=== PATIENT | male | born 1990 | race Caucasian/White ===

== ENCOUNTER 2016-08-10 10:49 | Emergency (ER) | payer OTHER ==
[~2016-08-10] VITALS: Ht 180.3 cm; Wt 104.3 kg
--- NOTE | 2016-08-10 11:09 | ED GI/GU/ABDOMINAL COMPLAINT ---
History of Present Illness General Chief Complaint: Nausea, Vomiting, Diarrhea Stated Complaint: N/V Source: patient, old records Exam Limitations: no limitations Vital Signs & Intake/Output Vital Signs & Intake/Output Vital Signs Date Time Temp Pulse Resp B/P Pulse O2 O2 Flow FiO2 Ox Delivery Rate 08/10 1248 100.0 100 18 127/59 100 Room Air 08/10 1057 98.8 117 16 142/82 97 Room Air Allergies Coded Allergies: MDX - Poison Allison Extract, Alum Prec (POISON ALLISON EXTRACT, ALUM PRECIPITAT) (04/14) Reconcile Medications Ondansetron HCl (Zofran) 4 MG TABLET 1 TAB PO Q6-8P PRN NAUSEA Triage Note: PT STATES HE WENT TO WALK IN AND WAS SENT HERE. PT HAS BEEN VOMITING SINCE 0230 STATES NOTHING HE ATE ALL DAY WAS DIGESTED. PT REPORTS HE VOMITED AT 0500 AND HIS VOMIT WAS DARK, PT BROUGHT SAMPLE FOR DR. MARKS LOOK AT. PT HAVING NORMAL BOWEL MOVEMENTS. Triage Nurses Notes Reviewed? yes Onset: Abrupt Duration: day(s):, constant Timing: recent history Quality/Severity: aching, cramping, vomiting Severity Numbers: 6 Location: generalized abdomen Radiation: no radiation Activities at Onset: none Prior Abdominal Problems: none Modifying Factors: Worsens With: eating. Associated Symptoms: nausea/vomiting HPI: 26-year-old male with history of GERD presents to emergency room complaining multiple episodes of nausea and vomiting since 2:30 this morning. He had a normal bowel movement this morning. No diarrhea. He is not taken anything for symptoms nor does he have any sick contacts with similar symptoms. He states he was out at a constitution party last night. He denies any abdominal pain at this time. He states at 5:00 this morning he had a dark episode of emesis which went to an urgent care and was referred to the ER for further workup. No history of abdominal surgeries in the past. No fever no chills no chest pain no back pain or urinary symptoms. He denies any nausea at this time. He does not smoke. He states he only had one alcoholic drink last night. (NGUYEN KINNEY) Past History Travel History Traveled to [place] past 21 day No Medical History Any Pertinent Medical History? none Surgical History Surgical History: none Psychosocial History What is your primary language Croatian Tobacco Use: Never used ETOH Use: occasional use Illicit Drug Use: denies illicit drug use Family History Hx Contributory? No (NGUYEN KINNEY) Review of Systems Review of Systems Constitutional: Reports: see HPI. All Other Systems: Reviewed and Negative Comments Review of systems: See HPI, All other systems negative. Constitutional, no chills no fever, no malaise HEENT: No visual changes no sore throat no congestion Cardiovascular: No chest pain , no palpitation Skin, no rashes, no change in skin Respiratory: No dyspnea no cough no sputum GI: nausea vomiting, no diarrhea, : No dysuria No hematuria, no frequency, no discharge Muscle skeletal: No joint pain, no back pain, no neck pain, Neurologic: No numbnessno headache Psych: No stress Heme/endocrine: No bruising no bleeding Immunology: No lymphadenopathy (NGUYEN KINNEY) Physical Exam Physical Exam General Appearance: well developed/nourished, no apparent distress, alert, awake Gastrointestinal: normal bowel sounds, soft, non-tender, no organomegaly Comments: Well-developed well-nourished person in no acute distress HEENT: Normal EENT exam; PERRL, EOMI, HEAD is atraumatic. moist mucous membranes. Neck: Supple, normal range of motion Back: Nontender, no CVA tenderness. Full range of motion Cardiovascular: Regular rate and rhythms no murmurs rubs Respiratory: Chest nontender.There were no bony deformities, no asymmetry. No respiratory distress. Patient speaking in full complete sentences. Breath sounds clear to auscultation bilaterally: NO W/R/R Abdomen: Soft, nontender nondistended, no appreciable organomegaly. Normal bowel sounds. No rebound/guarding, No appreciable enlargement of the abdominal aorta, No ascites. Extremity: No edema, full range of motion of extremities, Neuro: Alert oriented x3, motor sensory normal. There were no obvious focal neurologic abnormalities. Skin: No appreciable rash on exposed skin, skin is warm and dry. Psych: Mood and affect is normal, memory and judgment is normal. Core Measures ACS in differential dx? No Severe Sepsis Present: No Septic Shock Present: No (NGUYEN KINNEY) Progress Differential Diagnosis: appendicitis, biliary colic, bowel obstruction, colon cancer, cholecystitis, diverticulitis, esophageal varices, gastritis, hepatitis, hernia, ischemic bowel, inflamm bowel dis, Lor-Gordon tear, orchitis, pancreatitis, peptic ulcer, PUD/GERD, perforated viscous, pyelonephritis, SBO, STD Plan of Care: Orders Procedure Date/time Status Saline Lock 08/10 1147 Active LIPASE 08/10 1147 Complete ETHANOL 08/10 1147 Complete COMPREHENSIVE METABOLIC PANEL 08/10 1147 Complete CBC WITHOUT DIFFERENTIAL 08/10 1147 Complete AMYLASE 08/10 1147 Complete Laboratory Tests 08/10/16 1205: Anion Gap 14, Estimated GFR > 60, BUN/Creatinine Ratio 16.3, Glucose 98, Calcium 9.0, Total Bilirubin 1.7 H, AST 30, ALT 65, Alkaline Phosphatase 67, Total Protein 7.5, Albumin 4.5, Globulin 3.0, Albumin/Globulin Ratio 1.5, Amylase 60, Lipase 64, CBC w Diff MAN DIFF ORDERED, RBC 5.42, MCV 89.7, MCH 31.4 H, RDW 12.3, MPV 7.6, Gran % 88.4 H, Lymphocytes % 5.0 L, Monocytes % 6.1, Eosinophils % 0.3, Basophils % 0.2, Absolute Granulocytes 10.8 H, Absolute Lymphocytes 0.6 L, Absolute Monocytes 0.7 H, Absolute Eosinophils 0, Absolute Basophils 0, Platelet Estimate VERIFIED BY SMEAR, Normocytic RBCs VERIFIED, Normochromic RBCs VERIFIED, PUBS MCHC 35.0, Serum Alcohol < 10.0 08/10/2016 12:56:25 PM patient feeling improved tolerating by mouth challenge discussed with him at length all of his lab results. Prescription for Zofran provided advised bland diet clear liquids and return anytime sooner with any concerns he feels comfortable plan clear discharge (NGUYEN KINNEY) Initial ED EKG: none (NGUYEN KINNEY) Departure Departure Time of Disposition: 1255 Disposition: HOME OR SELF CARE Condition: Stable Clinical Impression Primary Impression: Nausea & vomiting Referrals: PATIENT HAS NO PRIMARY CARE DR (PCP/Family) Referred to [facility] as new patient No Additional Instructions: [place] diet clear liquids, advance diet as tolerated. Zofran as needed for nausea. Return to the emergency room with any concerns her this prescription was sent to your [facility] in [place] Departure Forms: Customer Survey General Discharge Information Prescriptions: Current Visit Scripts Ondansetron HCl (Zofran) 1 TAB PO Q6-8P PRN NAUSEA #10 TAB (NGUYEN KINNEY) PA/BANKMAN Co-Sign Statement Statement: ED Attending supervision documentation- [] I saw and evaluated the patient. I have also reviewed all the pertinent lab results and diagnostic results. I agree with the findings and the plan of care as documented in the PA's/BANKMAN's documentation. [X] I have reviewed the ED Record and agree with the PA's/BANKMAN's documentation. [] Additions or exceptions (if any) to the PAs/BANKMAN's note and plan are summarized below: [] (ROCIO RAMOS,MARIAH)
[2016-08-10 12:19] LABS: ABSOLUTE BASOPHIL COUNT 0 /CUMM (0.0-0.2); ABSOLUTE EOSINOPHIL COUNT 0 /CUMM (0.0-0.7); ABSOLUTE GRANULOCYTE CT 10.8 /CUMM (1.4-6.5); ABSOLUTE LYMPH COUNT 0.6 /CUMM (1.2-3.4); ABSOLUTE MONOCYTE COUNT 0.7 /CUMM (0.10-0.60); BASOPHIL % 0.2 % (0.0-2.0); EOSINOPHIL % 0.3 % (0-5); GRANULOCYTE % 88.4 % (42.2-75.2); HEMATOCRIT 48.6 % (42-52); MEAN CORPUSCULAR HGB 31.4 PG (27.0-31.0); MEAN CORPUSCULAR VOLUME 89.7 FL (80.0-94.0); MEAN PLATELET VOLUME 7.6 FL (7.4-10.4); PLATELET COUNT 170 /CUMM (130-400); RBC DISTRIBUTION WIDTH 12.3 % (11.5-14.5); RED BLOOD CELL CT 5.42 /CUMM (4.70-6.10); WHITE BLOOD CELL COUNT 12.2 /CUMM (4.8-10.8)
[2016-08-10 12:48] VITALS: BP 127/59
[2016-08-10] MEDS ORDERED: ZOFRAN4 M2 PO (12:55)
== END 2016-08-10 13:30 ==
LOC: ERH 10:49
PROVIDERS: Physician Assistant Medical
DX: R11.2 Nausea with vomiting, unspecified (principal); F10.10 Alcohol abuse, uncomplicated
CPT/HCPCS: 96374; 96375; G0480; J2405